=== PATIENT | male | born 1980 | race Caucasian/White ===

== ENCOUNTER 2021-04-10 15:40 | Emergency (ER) | payer BC, SELFPAY ==
[2021-04-10 17:24] VITALS: BP 158/86; PULSE 90; RESP 18; TEMP 37.2; O2SAT 100
--- NOTE | 2021-04-10 18:53 | ED.GENADULT ---
HPI - General Adult General Chief complaint: Eye Problems Stated complaint: pos pink eye,diarrhea,fatigue,runny nose, Time Seen by Provider: 04/10/21 18:44 Source: patient and RN notes reviewed Mode of arrival: ambulatory Limitations: no limitations History of Present Illness HPI narrative: Patient presents today with 5-day history of diarrhea, body aches, fatigue, headache. He reports left eye redness, watering, photophobia, pain and blurriness since yesterday. Denies fever or cough. He has been taking Tylenol with some relief. MD complaint: Cold symptoms, left eye redness Related Data Home Medications Medication Instructions Recorded Confirmed lisdexamfetamine [Vyvanse] 70 mg PO DAILY 04/10/21 04/10/21 Allergies Allergy/AdvReac Type Severity Reaction Status Date / Time No Known Allergies Allergy Verified 04/10/21 17:46 Review of Systems Review of Systems: CONSTITUTIONAL: Denies fever, chills, or sweats.+ Body aches, fatigue EYES: + Left eye redness, photophobia, blurriness, watering ENT: Denies rhinorrhea, congestion, sore throat, or otalgia. CARDIOVASCULAR: Denies chest pain, palpitations, or edema. RESPIRATORY: Denies cough or dyspnea. GASTROINTESTINAL: Denies abdominal pain, nausea, vomiting. + Diarrhea GENITOURINARY: Denies dysuria or hematuria. SKIN: Denies rash, itching, or wounds. MUSCULOSKELETAL: Denies back pain, joint pain, or myalgia. NEUROLOGIC: Denies numbness, tingling, or weakness.+ Headache PSYCH: Denies depression or anxiety. [facility] Past Medical History Medical History Anxiety Attention Deficit Hyperactivity Disorder (ADHD) History of kidney stones Family History Family History Grandparent Family history of anemia, Onset Age: 75 Acute myocardial infarction, Onset Age: 70 Family history of congestive heart failure, Onset Age: 75 Mother Family history of pancreatic cancer, Onset Age: 56 Father Family history of coronary artery disease, Onset Age: 58 Family history of congestive heart failure, Onset Age: 58 Social History Social History Smoking status: Never smoker Second hand tobacco smoke exposure: No Alcohol intake: current Substance use: never Substance use type: does not use Comments At time of signature, I have reviewed and agree with nursing past medical, surgical, social and family history unless otherwise noted. Please see nursing chart for further information. There is no relevant family history pertinent to the presenting complaint Exam Narrative: GENERAL: Well-appearing, well-nourished, and in no acute distress. HEAD: Normocephalic, atraumatic. EYES: EOMI. PERRL. Right eye normal. Left eye: Severely injected with chemosis and mild amount of tearing. No purulent discharge. ENT: Mucous membranes pink and moist. Nares clear. No rhinorrhea. TMs normal bilaterally. Throat normal. Uvula midline. NECK: Normal AROM. Supple. No lymphadenopathy. CHEST: No respiratory distress. Clear to auscultation. HEART: Regular rate and rhythm. No murmur appreciated. Normal peripheral pulses. EXTREMITIES: Normal range of motion. No edema. SKIN: Warm, dry, no rash. Capillary refill normal. Normal skin turgor. NEURO: No focal deficits. Alert and oriented x3. Gait steady. PSYCH: Normal affect. No signs of depression or anxiety. Course Course Level of Care: Express Care Visit Vital Signs Vital signs: Vital Signs Temperature 99 F 04/10/21 17:24 Pulse Rate 90 04/10/21 17:24 Respiratory Rate 18 04/10/21 17:24 Blood Pressure 158/86 H 04/10/21 17:24 Pulse Oximetry 100 04/10/21 17:24 Temperature 99 F 04/10/21 17:24 Pulse Rate 90 04/10/21 17:24 Respiratory Rate 18 04/10/21 17:24 Blood Pressure 158/86 H 04/10/21 17:24 Pu
== END 2021-04-10 19:00 | disposition home or self-care (01) ==
PROVIDERS: Emergency Provider Nurse Practitioner; PCP Nurse Practitioner Family
DX: U07.1 COVID-19 (principal); H10.32 Unspecified acute conjunctivitis, left eye; F90.9 Attention-deficit hyperactivity disorder, unspecified type
CPT/HCPCS: 87426; 99213; C9803; G0463

== ENCOUNTER 2021-06-28 17:58 | Emergency (ER) | payer BC, SELFPAY ==
[2021-06-28 18:05] VITALS: BP 138/91; PULSE 89; RESP 16; TEMP 36.6; O2SAT 98
--- NOTE | 2021-06-28 18:14 | ED.GENADULT ---
HPI - General Adult General Chief complaint: Extremity Injury, Lower Stated complaint: puncture wound left leg Time Seen by Provider: 06/28/21 18:07 History of Present Illness HPI narrative: Patient is a 41 year old healthy male here for evaluation of a wound to his right thigh sustained 1 hour [employer]. Patient was prying a rock out from under his trailer and he slipped and accidentaly stabbed himself with his pocket knife. 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 Knife is intact and denies any breaking of the metal in the wound. Tetanus not UTD. Patient is ambulatory. Denies further complaints. Related Data Allergies Allergy/AdvReac Type Severity Reaction Status Date / Time No Known Allergies Allergy Verified 04/14/21 13:44 Review of Systems Review of Systems: All systems reviewed & are unremarkable except as noted in HPI and below PMFSH Past Medical History Medical History Anxiety Attention Deficit Hyperactivity Disorder (ADHD) History of kidney stones Family History Family History Grandparent Family history of anemia, Onset Age: 75 Acute myocardial infarction, Onset Age: 70 Family history of congestive heart failure, Onset Age: 75 Mother Family history of pancreatic cancer, Onset Age: 56 Father Family history of coronary artery disease, Onset Age: 58 Family history of congestive heart failure, Onset Age: 58 Social History Social History Smoking status: Never smoker Second hand tobacco smoke exposure: No Alcohol intake: current Substance use: never Substance use type: does not use Exam Const: General: healthy appearing and no acute distress Orientation/consciousness: patient oriented x3 Eyes: Conjunctivae: conjunctivae normal Neck: Neck: normal visual inspection Resp: Effort & Inspection: normal respiratory effort Skin: General skin exam: normal color Other: 1 cm linear laceration present to left thigh just proximal to knee with subcutaneous tissue visible. Dried blood present, hemostasis achieved [employer] SCI[employer]ESS[employer]. Neuro: General: patient oriented x3 and moves all extremities Speech: normal speech Extrem: General: normal to inspection and no edema Psych: Appearance: grossly normal Mental Status: mental status grossly normal Thought content: Yes Normal thought content present Course Vital Signs Vital signs: Vital Signs Temperature 97.8 F 06/28/21 18:05 Pulse Rate 89 06/28/21 18:05 Respiratory Rate 16 06/28/21 18:05 Blood Pressure 138/91 H 06/28/21 18:05 Pulse Oximetry 98 06/28/21 18:05 Temperature 97.8 F 06/28/21 18:05 Pulse Rate 78 06/28/21 19:40 Respiratory Rate 16 06/28/21 19:40 Blood Pressure 138/91 H 06/28/21 18:05 Pulse Oximetry 98 06/28/21 19:40 Procedures Laceration Laceration 1: Date: 06/28/21 Time: 19:09 Site: lower extremity (left thigh) Size (cm): 2 Description: linear and clean Depth: simple, single layer Local Anesthetic: lidocaine 1% and with epi Amount of anesthesia used (mL): 4 Pre-repair: wound explored and irrigated ====== Skin Level ====== Skin layer closed with: nylon Size (cm): 3-0 Number of sutures: 2 Technique: simple, interrupted ====== Subcutaneous Layer ====== Technique: simple, interrupted ====== Muscle Layer ====== ====== Tendon Layer ====== Medical Decision Making MDM Narrative Medical decision making narrative: Healthy 41 year old here for laceration sustained from pocket knife 1 hour [employer]. Tolerated repair with sutures. Tetanus updated. Will have patient come back to ED/urgent care/PCP for suture removal in 10 days. No need for antibiotics as the wound was clean without debris. Advised patient to monitor for signs of infe
[2021-06-28] MEDS: TETANUS,DIPHTHERIA,AC PERTUSSIS ADULT (0.5 ML) BOOSTRIX IM (19:24)
[2021-06-28 19:40] VITALS: PULSE 78; RESP 16; O2SAT 98
== END 2021-06-28 19:40 | disposition home or self-care (01) ==
LOC: ANHED 19:13
PROVIDERS: Emergency Provider Emergency Medicine; PCP Nurse Practitioner Family
DX: S71.132A Puncture wound without foreign body, left thigh, initial encounter (principal); Z23 Encounter for immunization; W26.0XXA Contact with knife, initial encounter
CPT/HCPCS: 12001; 90471; 90715; 99282

== ENCOUNTER 2021-12-12 12:29 | Emergency (ER) | payer BC, SELFPAY ==
--- NOTE | ~2021-12-12 | US_ITS ---
EXAMINATION: US scrotum doppler DATE: 12/12/2021 13:45 INDICATION: Left testicular pain TECHNIQUE: Testicular sonogram utilizing grayscale and Doppler COMPARISON: None. FINDINGS: The right testis measures 4.2 x 2.1 x 2.8 cm. The left testis measures 4.1 x 2.0 x 2.9 cm. There is normal vascular flow to both testes. The right epididymis is normal with normal vascular padmini w. The left epididymis contains a 4 mm cyst or spermatocele. There is no varicocele or hydrocele. IMPRESSION: 1. No sonographic correlate for the patient's symptoms. Reviewed, dictated and finalized at location B.
[2021-12-12 12:36] VITALS: BP 139/92; PULSE 94; RESP 18; TEMP 36.6; O2SAT 98
[2021-12-12 12:50] LABS: Appearance Urine Clear (Clear); Bilirubin Urine Negative (Negative); Blood Urine Negative (Negative); Color Urine Yellow (Yellow); Glucose Urine UA Negative (Negative); Ketones Urine Negative (Negative); Leukocyte Esterase Ur Negative LEU/UL (Negative); Nitrate Urine Negative (Negative); Protein Urine Negative (Negative); Urobilinogen Urine 0.2 mg/dL (<2.0); pH Urine 5.5 (5.0-9.0)
[2021-12-12 13:01] LABS: Add Urine Microscopic? NO
--- NOTE | 2021-12-12 13:23 | ED.MALEGU ---
HPI - Male Genitourinary General Chief complaint: Urogenital-Male Stated complaint: testicular pain Time Seen by Provider: 12/12/21 12:52 History of Present Illness HPI Narrative: 41-year-old male presents the emergency room with a sudden onset of left testicular pain for 3 days. Patient states walking and sitting exacerbate the pain. Has not taken any medications to alleviate pain. Patient also states the pain radiates up into his suprapubic region. Also complains of decreased urine production. Denies dysuria. No concerns of STDs. Denies any injury or trauma to testicular region. Related Data Allergies Allergy/AdvReac Type Severity Reaction Status Date / Time No Known Allergies Allergy Verified 10/20/21 15:20 Review of Systems Review of Systems: CONSTITUTIONAL: Denies fever, chills, or sweats. EYES: Denies visual changes, redness, or discharge. ENT: Denies rhinorrhea, congestion, sore throat, or otalgia. CARDIOVASCULAR: Denies chest pain, palpitations, or edema. RESPIRATORY: Denies cough or dyspnea. GASTROINTESTINAL: Denies abdominal pain, nausea, vomiting, or diarrhea. GENITOURINARY: Reports left testicular pain SKIN: Denies rash or itching. MUSCULOSKELETAL: Denies back pain, joint pain, or myalgia. NEUROLOGIC: Denies headache, numbness, dizziness, or weakness. PSYCHIATRIC: Denies anxiety or depression. [facility] Past Medical History Medical History Anxiety Attention Deficit Hyperactivity Disorder (ADHD) History of kidney stones Low testosterone in male Family History Family History Grandparent Family history of anemia, Onset Age: 75 Acute myocardial infarction, Onset Age: 70 Family history of congestive heart failure, Onset Age: 75 Mother Family history of pancreatic cancer, Onset Age: 56 Father Family history of coronary artery disease, Onset Age: 58 Family history of congestive heart failure, Onset Age: 58 Social History Social History Smoking status: Never smoker Second hand tobacco smoke exposure: No Alcohol intake: current Substance use: never Substance use type: does not use Gender identity (if verbalized by the patient): Male Agree to blood products: Yes Exam Narrative: GENERAL: Well-appearing, well-nourished, no physical limitations, and in no acute distress. HEAD: Normocephalic, atraumatic. EYES: Conjunctivae normal, PERRLA and EOMI. CHEST: Clear to auscultation. No respiratory distress. No wheezes rales or rhonchi. No tenderness. HEART: Regular rate and rhythm. No murmur heard. Normal peripheral pulses. ABDOMEN: Soft, nontender, nondistended, normal active bowel sounds. : Normal external male exam. Positive Prehn sign on the left. Positive cremasteric reflex bilaterally BACK: No CVA tenderness; No cervical/thoracic/lumbar tenderness, step-offs, bony abnormality; FROM EXTREMITIES: Normal range of motion. No edema. No clubbing or cyanosis SKIN: Warm, dry, no rash. No noted wounds NEURO: No focal deficits. Alert and oriented x3. MAEW. CN's II-XI intact bilaterally, normal gait PSYCH: Cooperative. Normal mood and affect. Course Vital Signs Vital signs: Vital Signs Temperature 36.6 C 12/12/21 12:36 Pulse Rate 94 12/12/21 12:36 Respiratory Rate 18 12/12/21 12:36 Blood Pressure 139/92 H 12/12/21 12:36 Pulse Oximetry 98 12/12/21 12:36 Oxygen Delivery Room Air 12/12/21 12:36 Temperature 36.6 C 12/12/21 12:36 Pulse Rate 94 12/12/21 12:36 Respiratory Rate 18 12/12/21 12:36 Blood Pressure 139/92 H 12/12/21 12:36 Pulse Oximetry 98 12/12/21 12:36 Oxygen Delivery Room Air 12/12/21 12:36 MDM - Male Genitourinary Lab Data Labs: Lab Results 12/12/21 Range/Units 12:40 Urine Color Yellow (Yellow) Urine Appearance Clear
[2021-12-12 14:46] VITALS: BP 132/93; PULSE 87; RESP 16; O2SAT 98
== END 2021-12-12 14:46 | disposition home or self-care (01) ==
PROVIDERS: Emergency Medicine; Emergency Provider Nurse Practitioner Family; PCP Nurse Practitioner Family
DX: N50.812 Left testicular pain (principal)
CPT/HCPCS: 76870; 81003; 93976; 99284

== ENCOUNTER 2022-01-30 07:21 | Emergency (ER) | payer BC, SELFPAY ==
[2022-01-30] VITALS (18 sets, daily range): BP systolic 153–173; BP diastolic 91–111; PULSE 90–105; RESP 9–25; TEMP 36.4; O2SAT 94–100
--- NOTE | ~2022-01-30 | CT_ITS ---
EXAMINATION: CT abdomen pelvis w con DATE: 01/30/2022 09:49 INDICATION: Abdominal pain. TECHNIQUE: Computed tomography (CT) of the abdomen and pelvis was performed with 100 CC Omnipaque 350 intravenous contrast. Automated exposure control and iterative reconstruction technique were employe d. Exam dose: 783.89 mGy-cm total exam DLP. COMPARISON: 12/12/2021 scrotal ultrasound FINDINGS: Mild discoid atelectasis in the dependent lower lobes. Normal heart size. No pericardial or pleural effusion. The liver, gallbladder, bile ducts, pancreas, pancreatic duct, spleen, and adrenal glands are unremar kable. 5 mm left renal cyst. There are 2 nonobstructing lower pole right renal calculi, measuring approximat titi 2.5 x 4 mm and 5.5 x 8 mm, the latter stone with mean 541 Hounsfield unit density. No ureteral calculus or hydroureteronephrosis. Normal caliber of the abdominal aorta. No intraperitoneal or retroperitoneal or pelvic mass lesion or adenopathy or ascites. The urinary bladder and prostate gland are unremarkable. Normal appendix. No bowel obstruction, bowel wall thickening, pneumatosis or intraperitoneal free air . Small fat-containing inguinal hernias, right larger than left. Small fat-containing umbilical hernia. No suspicious osteolytic or osteoblastic lesions. IMPRESSION: 5 mm left renal cysts Nonobstructive lower pole right nephrolithiasis Normal appendix Small fat-containing inguinal hernias, small umbilical hernia Reviewed, dictated and finalized at Location [facility]. Reviewed, dictated and finalized at location A.
--- NOTE | ~2022-01-30 | XR_ITS ---
EXAMINATION: XR chest 2V DATE: 01/30/2022 08:19 INDICATION: Chest pain. Shortness of breath. TECHNIQUE: Frontal and lateral views of the chest were obtained. COMPARISON: None. FINDINGS: The chest demonstrates clear lungs without pneumonia, pleural effusion, or pneumothorax. Th e heart size is normal. IMPRESSION: 1. No acute cardiopulmonary disease. Reviewed, dictated and finalized at location A.
--- NOTE | 2022-01-30 07:25 | ECG_ITS ---
Measurements Intervals [place] Rate: 90 P: 138 UT: 142 QRS: 106 QRSD: 103 T: 0 QT: 327 QTc: 401 Interpretive Statements ECTOPIC ATRIAL RHYTHM LEFT ATRIAL ENLARGEMENT [-0.15mV P-WAVE IN V1/V2] LOW QRS VOLTAGE IN EXTREMITY LEADS [QRS DEFLECTION < 0.5 mV IN LIMB LEADS] INCOMPLETE RIGHT BUNDLE BRANCH BLOCK [90+ ms QRS DURATION, TERMINAL R IN V1/V2, 40+ ms S IN I/aVL/V4/V5/V6] NO PREVIOUS ECG AVAILABLE FOR COMPARISON Electronically Signed On 01-30-2022 12:47:03 CDT by Eddie Jung M.D.
--- NOTE | 2022-01-30 07:36 | ECG_ITS ---
Measurements Intervals [place] Rate: 104 P: 52 MD: 148 QRS: 47 QRSD: 100 T: 13 QT: 323 QTc: 425 Interpretive Statements SINUS TACHYCARDIA LEFT ATRIAL ENLARGEMENT [-0.15mV P-WAVE IN V1/V2] INCOMPLETE RIGHT BUNDLE BRANCH BLOCK [90+ ms QRS DURATION, TERMINAL R IN V1/V2, 40+ ms S IN I/aVL/V4/V5/V6] NONSPECIFIC T-WAVE ABNORMALITY COMPARED TO ECG 01/30/2022 07:29:58 NO CHANGE Electronically Signed On 01-30-2022 12:47:37 CDT by Eddie Jung M.D.
[2022-01-30] MEDS: ASPIRIN 81 MG CHEWABLE TABLET 324 MG PO (07:44)
--- NOTE | 2022-01-30 07:44 | ED.GENADULT ---
HPI - General Adult General Chief complaint: Chest Pain Stated complaint: cp Time Seen by Provider: 01/30/22 07:30 History of Present Illness HPI narrative: this is a 41-year-old male presenting ED with chief complaint of chest pain. Patient says the pain started at 1:00 a.m.. It is a tight dullness in the center of his chest that is nonradiating, 7/10 in intensity, constant and getting worse. He has never experienced pain like this before there are no exacerbating or alleviating factors. It is not associated with vomiting, diaphoresis, exertion or radiation. Patient also has some abdominal discomfort in the epigastric area that radiates to his back. Patient is a daily drinker. Patient denies fever, chills, headache, body aches. He is vaccinated against COVID and flu. He denies sick contacts at home. Patient came to emergency room because after he woke up with chest pain he has took his blood pressure is elevated 170/100. Related Data Allergies Allergy/AdvReac Type Severity Reaction Status Date / Time No Known Allergies Allergy Verified 10/20/21 15:20 Review of Systems Review of Systems: CONSTITUTIONAL: Denies night sweats. EYES: No eye pain ENT: Denies rhinorrhea CARDIOVASCULAR: Denies palpitations RESPIRATORY: Denies hemoptysis GASTROINTESTINAL: Denies hematemesis GENITOURINARY: Denies hematuria. SKIN: Denies rash MUSCULOSKELETAL: Denies myalgia. NEUROLOGIC: Denies weakness. PSYCHIATRIC: Denies delusions PMFSH Past Medical History Medical History Anxiety Attention Deficit Hyperactivity Disorder (ADHD) History of kidney stones Low testosterone in male Family History Family History Grandparent Family history of anemia, Onset Age: 75 Acute myocardial infarction, Onset Age: 70 Family history of congestive heart failure, Onset Age: 75 Mother Family history of pancreatic cancer, Onset Age: 56 Father Family history of coronary artery disease, Onset Age: 58 Family history of congestive heart failure, Onset Age: 58 Social History Social History Smoking status: Never smoker Second hand tobacco smoke exposure: No Alcohol intake: current Substance use: never Substance use type: does not use Gender identity (if verbalized by the patient): Male Agree to blood products: Yes Exam Narrative: APPEARANCE: No apparent distress. Head atraumatic. EYES: PERRLA/EOMI, NOSE: Normal no drainage NECK: Supple, Trachea midline RESPIRATORY: CTAB, No increased work of breathing. CARDIOVASCULAR: S1S2 appreciated , no peripheral edema ABDOMINAL: mild tenderness palpation in the epigastric area, no guarding or rebound abdomen is soft MUSCULOSKELETAl: No obvious deformities NEURO: Alert. Moving 4/4 extremities SKIN:: Warm, dry. Normal color PSYCHIATRIC: Normal affect Course Vital Signs Vital signs: Vital Signs Temperature 97.6 F 01/30/22 07:26 Pulse Rate 102 H 01/30/22 07:26 Respiratory Rate 15 01/30/22 07:26 Blood Pressure 173/111 H 01/30/22 07:26 Pulse Oximetry 99 01/30/22 07:26 Temperature 97.6 F 01/30/22 07:26 Pulse Rate 100 01/30/22 10:48 Respiratory Rate 18 01/30/22 10:48 Blood Pressure 153/95 H 01/30/22 10:48 Pulse Oximetry 98 01/30/22 10:48 Oxygen Delivery Room Air 01/30/22 07:49 Medical Decision Making MDM Narrative Medical decision making narrative: this is a 41-year-old male presenting ED with chest and abdominal pain. Patient is concerned that he is having a heart attack. ACS workup has been ordered. Patient is young and has few risk factors for heart disease. 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 Patient will be given a GI cocktail. Abdominal and chest pain lab work has been ordered.
[2022-01-30 07:49] LABS: Basophils Percent Auto 0.5 % (0.2-1.2); Eosinophils Absolute Auto 0.2 K/mm3 (0-0.3); Eosinophils Percent Auto 2.6 % (0-4.4); Hematocrit 49.5 % (42.0-52.0); Hemoglobin 16.9 g/dL (14.0-18.0); Immature Granulocyte Absolute 0.02 K/mm3 (0.00-0.031); Immature Granulocyte Percent A 0.3 % (0-0.5); Lymphocytes Absolute Auto 1.95 K/mm3 (0.9-3.2); Lymphocytes Percent Auto 31.1 % (18.3-44.2); Mean Corpuscular HGB Conc 34.1 g/dl (32-36); Mean Corpuscular Hemoglobin 31.5 pg (26-34); Mean Corpuscular Volume 92.4 fl (80-100); Mean Platelet Volume 10.2 fl (7.4-10.4); Monocytes Absolute Auto 0.8 K/mm3 (0.1-0.6); Monocytes Percent Auto 13.1 % (2.6-8.5); Neutrophils Absolute Auto 3.3 K/mm3 (1.3-6.7); Neutrophils Percent Auto 52.4 % (45.5-73.1); Platelet Count Result 234 k/mm3 (150-375); Red Blood Count 5.36 M/mm3 (4.6-6.20); Red Cell Distribution Width 13.3 % (11.5-14.5); White Blood Count 6.3 K/mm3 (4.5-10.0)
[2022-01-30 07:58] LABS: Prothrombin Time 12.9 Seconds (11.1-14.7)
[2022-01-30 07:59] LABS: Partial Thromboplastin Time 29.5 SECONDS (22.3-36.8)
[2022-01-30] MEDS: MAG HYDROX/AL HYDROX/SIMETH 30 ML UDC PO (08:05)
[2022-01-30] MEDS: FAMOTIDINE 20 MG/2 ML VIAL IV PUSH (08:06)
[2022-01-30 08:16] LABS: Troponin I < 0.012 ng/mL (0.000-0.034)
[2022-01-30 08:26] LABS: Alanine Aminotransferase 39 U/L (6-50); Albumin Level 4.9 g/dL (3.5-5.1); Alkaline Phosphatase 54 U/L (38-126); Anion Gap 14 mmol/L (8-16); Aspartate Amino Transferase 57 U/L (17-59); Bilirubin,Total 0.9 mg/dL (0.2-1.3); Blood Urea Nitrogen 13 mg/dL (9-20); Calcium 9.2 mg/dL (8.4-10.2); Carbon Dioxide 26 mmol/L (22-30); Chloride 100 mmol/L (98-107); Estimated Glomerular Filt Rate > 60; Glucose 108 mg/dL (65-110); Lipase 57 U/L (23-300); Potassium 3.6 mmol/L (3.4-5.0); Sodium 140 mmol/L (137-145)
--- NOTE | 2022-01-30 09:06 | PC.NURSE ---
Patient reports he is still in pain, EDP Zych notified.
[2022-01-30] MEDS: HYDROmorphone HCL INJ (*CRX) 1 MG/ML SYR 0.5 MG IV PUSH (09:30)
[2022-01-30] MEDS: SODIUM CHLORIDE 0.9% IV 2,000 ML 999 ML IV CONT (09:30)
[2022-01-30 11:07] LABS: Troponin I < 0.012 ng/mL (0.000-0.034)
== END 2022-01-30 11:57 | disposition home or self-care (01) ==
PROVIDERS: Emergency Provider Emergency Medicine; PCP Nurse Practitioner Family
DX: K29.70 Gastritis, unspecified, without bleeding (principal); F41.9 Anxiety disorder, unspecified; F90.9 Attention-deficit hyperactivity disorder, unspecified type; Z87.442 Personal history of urinary calculi; N28.1 Cyst of kidney, acquired; N20.0 Calculus of kidney; K40.90 Unilateral inguinal hernia, without obstruction or gangrene, not specified as recurrent; K42.9 Umbilical hernia without obstruction or gangrene; I45.10 Unspecified right bundle-branch block; R00.0 Tachycardia, unspecified; R94.31 Abnormal electrocardiogram [ECG] [EKG]
CPT/HCPCS: 36415; 71046; 74177; 80053; 83690; 84484; 85025; 85610; 85730; 93005; 96361; 96374; 99284; A9270; J1170; J7030; Q9967

== ENCOUNTER 2022-06-21 09:31 | Emergency (ER) | payer BC, SELFPAY ==
[2022-06-21] VITALS (12 sets, daily range): BP systolic 108–142; BP diastolic 84–97; PULSE 70–85; RESP 0–21; TEMP 36.8; O2SAT 95–99
--- NOTE | ~2022-06-21 | XR_ITS ---
XR chest 1V portable DATE: 06/21/2022 10:03 INDICATION: Left chest pain, chest tightness since last evening TECHNIQUE: Portable AP chest on 06/21/2022 at 1001 hours COMPARISON: 01/30/2022 PA and lateral chest FINDINGS: Normal heart size. No hilar or mediastinal enlargement. No pulmonary infiltrate or consolid ation, pleural effusion or pulmonary vascular congestion or pneumothorax is detected. IMPRESSION: No active cardiopulmonary disease Reviewed, dictated and finalized at location B.
--- NOTE | 2022-06-21 09:35 | ECG_ITS ---
Measurements Intervals [place] Rate: 84 P: 30 UT: 135 QRS: 19 QRSD: 98 T: 17 QT: 339 QTc: 401 Interpretive Statements SINUS RHYTHM ST ELEVATION IN DIFFUSE LEADS- PROBABLY EARLY REPOLARIZATION ABNORMALITY BORDERLINE ECG BASELINE ARTIFACT- I, II, III, AVR COMPARED TO ECG 01/30/2022 07:37:21 SINUS RHYTHM NOW PRESENT Electronically Signed On 06-21-2022 12:02:29 CDT by Marlon Escoto D.O.
[2022-06-21 09:59] LABS: Basophils Percent Auto 0.4 % (0.2-1.2); Eosinophils Absolute Auto 0.2 K/mm3 (0-0.3); Eosinophils Percent Auto 3.5 % (0-4.4); Hematocrit 48.2 % (42.0-52.0); Hemoglobin 16.5 g/dL (14.0-18.0); Immature Granulocyte Absolute 0.02 K/mm3 (0.00-0.031); Immature Granulocyte Percent A 0.4 % (0-0.5); Lymphocytes Absolute Auto 1.68 K/mm3 (0.9-3.2); Lymphocytes Percent Auto 32.2 % (18.3-44.2); Mean Corpuscular HGB Conc 34.2 g/dl (32-36); Mean Corpuscular Volume 93.4 fl (80-100); Mean Platelet Volume 9.8 fl (7.4-10.4); Monocytes Absolute Auto 0.7 K/mm3 (0.1-0.6); Monocytes Percent Auto 12.9 % (2.6-8.5); Neutrophils Absolute Auto 2.6 K/mm3 (1.3-6.7); Neutrophils Percent Auto 50.6 % (45.5-73.1); Platelet Count Result 248 k/mm3 (150-375); Red Blood Count 5.16 M/mm3 (4.6-6.20); Red Cell Distribution Width 12.8 % (11.5-14.5); White Blood Count 5.2 K/mm3 (4.5-10.0)
--- NOTE | 2022-06-21 10:00 | ED.CHESTPAIN ---
HPI - Chest Pain General Chief Complaint: Chest Pain Stated Complaint: Chest pain Time Seen by Provider: 06/21/22 09:48 Source: patient and RN notes reviewed Mode of arrival: ambulatory Limitations: no limitations History of Present Illness HPI narrative: This is a 42 year old male that presents to the ER for chest pain ongoing since last night. Reports the pain is substernal and dull in nature. It is constant, but has improved since onset. He has not taken anything for pain. Reports the pain is worse with breathing. Denies fever, cough, shortness of breath, lower extremity edema or vomiting. Related Data Home Medications Medication Instructions Recorded Confirmed bupropion HCl 300 mg 24 hr tablet, 300 mg PO QAM 05/02/22 05/02/22 extended release (Wellbutrin XL) omeprazole magnesium 20 mg 20 mg PO DAILY 05/02/22 05/02/22 tablet,delayed release (Prilosec OTC) Allergies Allergy/AdvReac Type Severity Reaction Status Date / Time No Known Allergies Allergy Verified 06/21/22 09:44 Review of Systems Review of Systems: CONSTITUTIONAL: Denies fever CARDIOVASCULAR: Reports chest pain. Denies edema. RESPIRATORY: Denies cough or dyspnea. All systems reviewed & are unremarkable except as noted in HPI and below PMFSH Past Medical History Medical History Anxiety Attention Deficit Hyperactivity Disorder (ADHD) GERD (gastroesophageal reflux disease) History of kidney stones Hyperlipemia Low testosterone in male Mixed hyperlipidemia Family History Family History Grandparent Family history of anemia, Onset Age: 75 Acute myocardial infarction, Onset Age: 70 Family history of congestive heart failure, Onset Age: 75 Heart disease Mother Family history of pancreatic cancer, Onset Age: 56 Father Family history of coronary artery disease, Onset Age: 58 Family history of congestive heart failure, Onset Age: 58 Heart disease Social History Social History Smoking status: Never smoker Second hand tobacco smoke exposure: No Alcohol intake: current Substance use: never Substance use type: does not use Lack of Transportation: No Current Housing: I Have Housing Concerned About Future Housing: No Difficulty Paying Gas/Electric Bills: No Difficulty Paying for Meds: No Currently Unemployed: No Education: Trade/Vocational Certificate Difficulty w/ Childcare or Family Care: No Living arrangements: with family Occupation/Education: occupation 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 HEAD: Normocephalic, atraumatic. EYES: EOMI. CHEST: Clear to auscultation. No respiratory distress. No wheezes rales or rhonchi HEART: Regular rate and rhythm. No murmur heard. Normal peripheral pulses. EXTREMITIES: Normal range of motion. No edema. SKIN: Warm, dry, no rash. NEURO: No focal deficits. Alert and oriented x3. PSYCH: Normal mood and affect Course Course Emergency Course: Patient and family updated on workup and agree with plan of care Vital Signs Vital signs: Vital Signs Temperature 98.3 F 06/21/22 09:38 Pulse Rate 85 06/21/22 09:38 Respiratory Rate 16 06/21/22 09:38 Blood Pressure 134/85 06/21/22 09:38 Pulse Oximetry 98 06/21/22 09:38 Oxygen Delivery Room Air 06/21/22 09:38 Temperature 98.3 F 06/21/22 09:38 Pulse Rate 75 06/21/22 12:46 Respiratory Rate 18 06/21/22 12:46 Blood Pressure 135/91 H 06/21/22 12:45 Pulse Oximetry 99 06/21/22 12:46 Oxygen Delivery Room Air 06/21/22 09:40 MDM - Chest Pain MDM Narrative Medical decis
[2022-06-21] MEDS: PANTOPRAZOLE SODIUM IV 40 MG VIAL IV PUSH (10:10)
[2022-06-21] MEDS: SODIUM CHLORIDE 0.9% IV 500 ML 999 ML IV CONT (10:10)
[2022-06-21 10:11] LABS: Prothrombin Time 12.6 Seconds (11.1-14.7)
[2022-06-21 10:12] LABS: Partial Thromboplastin Time 32.7 SECONDS (22.3-36.8)
[2022-06-21 10:14] LABS: Alanine Aminotransferase 58 U/L (6-50); Albumin Level 4.6 g/dL (3.5-5.1); Alkaline Phosphatase 52 U/L (38-126); Anion Gap 7 mmol/L (8-16); Aspartate Amino Transferase 54 U/L (17-59); Bilirubin,Total 0.7 mg/dL (0.2-1.3); Blood Urea Nitrogen 18 mg/dL (9-20); Calcium 8.8 mg/dL (8.4-10.2); Carbon Dioxide 25 mmol/L (22-30); Chloride 104 mmol/L (98-107); Estimated CRCL calculation 115 ml/min; Estimated Glomerular Filt Rate > 60; Glucose 101 mg/dL (65-110); Lipase 63 U/L (23-300); Potassium 4.3 mmol/L (3.4-5.0); Sodium 136 mmol/L (137-145)
[2022-06-21 10:24] LABS: Troponin I < 0.012 ng/mL (0.000-0.034)
[2022-06-21 12:59] LABS: Troponin I < 0.012 ng/mL (0.000-0.034)
== END 2022-06-21 14:01 | disposition home or self-care (01) ==
PROVIDERS: General Practice; Emergency Provider Physician Assistant; PCP Nurse Practitioner Family
DX: R07.9 Chest pain, unspecified (principal); E78.2 Mixed hyperlipidemia; K21.9 Gastro-esophageal reflux disease without esophagitis; F90.9 Attention-deficit hyperactivity disorder, unspecified type; F41.9 Anxiety disorder, unspecified
CPT/HCPCS: 36415; 71045; 80053; 83690; 84484; 85025; 85380; 85610; 85730; 93005; 96365; 96375; 99284; C9113; J0131; J7040

== ENCOUNTER 2022-08-10 10:01 | Outpatient (CLI) | payer BC, SELFPAY ==
--- NOTE | 2022-08-10 10:04 | EST_ITS ---
Patient Info Name: Dilshad Kamara Age: 42 years : 1980 Gender: Male Ht: 72 in Wt: 220 lbs BSA: 2.27 m2 Exam Date: 08/10/2022 10:14 AM Exam Location: [facility] Stress Patient Status: Outpatient Admit Date: 08/10/2022 Staff Ordering Physician: Deisi Jeffries NP Attending Provider: Deisi Jeffries NP Exercise Technologist: Sarah Silveira RDCS Exercise Physician: Marlon Escoto DO Exam Type: CA stress test treadmill Study Info Indications R07.9 - Chest pain, unspecified A treadmill exercise stress test was performed. Summary 1. 1. Negative Darren exercise stress test for ischemic ST changes by ECG criteria. 2. 2. Good functional capacity, achieving 12 METs of workload. 3. 3. Appropriate HR response to exercise. 4. 4. Appropriate HR recovery at 1 minute post exercise. 5. 5. No imaging with stress testing. 6. 6. Patient informed of the above results. Protocol: Darren Stress ECG Details Stage: REST Duration (min): 0 min : 59 sec Speed (mph): 0.0 Grade (%): 0 HR (bpm): 92 SBP (mmHg): 128 DBP (mmHg): 92 METS: --- Stage: REST Duration (min): 6 min : 5 sec Speed (mph): 0.0 Grade (%): 0 HR (bpm): 95 SBP (mmHg): 128 DBP (mmHg): 92 METS: --- Stage: STAGE 1 Duration (min): 1 min : 0 sec Speed (mph): 1.7 Grade (%): 10 HR (bpm): 118 SBP (mmHg): 128 DBP (mmHg): 92 METS: --- Stage: STAGE 1 Duration (min): 2 min : 0 sec Speed (mph): 1.7 Grade (%): 10 HR (bpm): 120 SBP (mmHg): 128 DBP (mmHg): 92 METS: --- Stage: STAGE 1 Duration (min): 3 min : 0 sec Speed (mph): 1.7 Grade (%): 10 HR (bpm): 124 SBP (mmHg): 152 DBP (mmHg): 64 METS: --- Stage: STAGE 2 Duration (min): 1 min : 0 sec Speed (mph): 2.5 Grade (%): 12 HR (bpm): 125 SBP (mmHg): 152 DBP (mmHg): 64 METS: --- Stage: STAGE 2 Duration (min): 2 min : 0 sec Speed (mph): 2.5 Grade (%): 12 HR (bpm): 128 SBP (mmHg): 147 DBP (mmHg): 71 METS: --- Stage: STAGE 2 Duration (min): 3 min : 0 sec Speed (mph): 2.5 Grade (%): 12 HR (bpm): 129 SBP (mmHg): 147 DBP (mmHg): 71 METS: --- Stage: STAGE 3 Duration (min): 1 min : 0 sec Speed (mph): 3.4 Grade (%): 14 HR (bpm): 133 SBP (mmHg): 143 DBP (mmHg): 74 METS: --- Stage: STAGE 3 Duration (min): 2 min : 0 sec Speed (mph): 3.4 Grade (%): 14 HR (bpm): 134 SBP (mmHg): 143 DBP (mmHg): 74 METS: --- Stage: STAGE 3 Duration (min): 3 min : 0 sec Speed (mph): 3.4 Grade (%): 14 HR (bpm): 138 SBP (mmHg): 146 DBP (mmHg): 75 METS: --- Stage: STAGE 4 Duration (min): 1 min : 0 sec Speed (mph): 4.2 Grade (%): 16 HR (bpm): 147 SBP (mmHg): 146 DBP (mmHg): 75 METS: --- Stage: STAGE 4 Duration (min): 2 min : 0 sec Speed (mph): 4.2 Grade (%): 16 HR (bpm): 156 SBP (mmHg): 143 DBP (mmHg): 73 METS: --- Stage: STAGE 4 [facility]
== END 2022-08-10 10:02 | disposition home or self-care (01) ==
LOC: ANHCARD 10:02
PROVIDERS: PCP Nurse Practitioner Family; Visit Provider Nurse Practitioner Family
DX: R07.9 Chest pain, unspecified (principal)
CPT/HCPCS: 93017

== ENCOUNTER → 2022-11-20 15:46 | Outpatient (CLI) | payer BC, SELFPAY ==
--- NOTE | ~2022-11-20 | XR_ITS ---
EXAMINATION: XR lumbar spine 2-3V DATE: 11/20/2022 15:56 INDICATION: Low back pain TECHNIQUE: Anteroposterior and lateral views of the lumbar spine, and cone-down lateral view of the l umbosacral junction were obtained. COMPARISON: CT, 01/30/2022 FINDINGS: Bone alignment is normal. There is no fracture. There is mild loss of intervertebral disc s pace height at L4-5. The vertebral body heights are maintained. Small degenerative osteophytes projec t from the anterior endplates of multiple vertebral bodies. There is mild facet joint osteoarthritis of the lower lumbar spine. IMPRESSION: 1. Mild lumbar spondylosis without acute findings. Reviewed, dictated and finalized at location A.
== END ==
PROVIDERS: PCP Nurse Practitioner Family; Visit Provider Nurse Practitioner Family
DX: M79.662 Pain in left lower leg (principal); M47.896 Other spondylosis, lumbar region
CPT/HCPCS: 72100

== ENCOUNTER 2022-12-29 15:45 | Outpatient (RCR) | payer BC, SELFPAY ==
--- NOTE | 2022-12-08 10:46 | OPREHPOC ---
Outpatient Therapy Plan of Care This is a Multidisciplinary Plan of Care that may contain components documented by all disciplines (PT, OT, and ST.) PT Problem 1 PT Problem #1 Knowledge Deficit PT Goal 1 Goal Pt to be IND with issued HEP Target Visit 8 PT Problem 2 PT Problem #2 Pain PT Goal 1 Goal Pt to report back pain no greater than 3/10 in the last week Target Visit 8 PT Goal 2 Goal Pt to report 75% improvement in overall symptoms Target Visit 8 PT Problem 3 PT Problem #3 Impaired Range of Motion PT Goal 1 Goal Pt to demonstrate lumbar ROM that is WNL and pain free Target Visit 8 PT Goal 2 Goal Pt to demonstrate hip ROM that is WNL and pain free Target Visit 8 PT Problem 4 PT Problem #4 Impaired Gait PT Goal 1 Goal Pt to ambulate without deviations Target Visit 8 PT Problem 5 PT Problem #5 Impaired Functional Mobil PT Goal 1 Goal Pt to report a full return to work without limitations. Target Visit 8
--- NOTE | 2022-12-08 10:46 | PTOPEVAL1 ---
Assessment and note entered by Hernán Mayfield, PT, DPT Evaluation Information Assessment Status Evaluation Diagnosis back pain with L sided sciatica Onset 1-2 weeks ago Subjective Information Pt states on a Sunday night be moved something heavy and states he deirdre felt something weird . He states he just laid around the rest of the weekend and got up to work on sunday and could barely walk. He states the pain is progressively getting worse. He reports a shooting pain that goes down his legs but declines weakness or numbness. 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 Reported Pain Level Pain Score 8: Self Report Assessment PT Clinical Summary Dilshad presents today for his initial evaluation with a diagnosis of lumbago with L sided sciatica. Today he demonstrates decreased active lumbar ROM and hip ROM in all directions with is limited by pain. He demonstrates slow and guarded movements during functional transitions and ambulated with significant deviations and a decreased gait speed. Skilled therapy services are indicated to manage pain, to imporve mobility, to normalize gait pattern, and to return to PLOF. Plan of Care Interventions Electrical Stimulation,Gait Training,Hot Pack/Cold Pack,Manual Therapy,Mechanical Traction,Neuro Re- education,Patient/Caregiver Educati,Therapeutic Activities,Therapeutic Exercise PT Services Indicated Yes Treatment Frequency and 2x/wk for 4 wks Duration These treatments will address the objective and functional deficits as defined above. The patient will be advanced safely and appropriately in order for the patient to progress towards his/her prior level of function. Additional exercises will be introduced and as well as a comprehensive home exercise program upon discharge, if needed, ?to ensure carryover of functional gains achieved in the clinic. This treatment plan has been reviewed and agreement upon by the patient.
--- NOTE | 2022-12-15 10:19 | PCPTNOTE ---
Patient called & cancelled scheduled appointment this date due to not feeling well.
--- NOTE | 2022-12-20 15:27 | PCPTNOTE ---
Patient called to cancel due to work conflict.
--- NOTE | 2022-12-22 15:10 | PCPTNOTE ---
Patient called & cancelled scheduled appointment this date due to being in too much pain.
--- NOTE | 2022-12-26 14:55 | PCPTNOTE ---
Patient called to cancel appointment this date due to work.
--- NOTE | 2023-01-03 15:10 | PCPTNOTE ---
Patient canceled this date due to work.
--- NOTE | 2023-01-05 15:50 | PCPTNOTE ---
Patient called & cancelled scheduled appointment this date due to being stuck at work.
--- NOTE | 2023-01-24 13:40 | PTOPDC ---
Assessment and note entered by Hernán Mayfield, PT, DPT Evaluation Information Assessment Status Discharge - Pt Not Presen Diagnosis back pain with L sided sciatica Onset 1-2 weeks ago Subjective Information Pt to be discharged d/t poor therapy compliance. Called pt to inform him of discharge and states he plans to follow up with his provider. He states he is doing well but wants an MRI just to see whats going on . Assessment PT Clinical Summary Pt was evaluated on 12/08/22 and completed 3 of 9 scheduled visits. Per attendance policy pt will be discharged at this time.
== END 2023-01-24 14:53 | disposition home or self-care (01) ==
LOC: ANHGOSHPT 15:45
PROVIDERS: PCP Nurse Practitioner Family; Visit Provider Nurse Practitioner Family
DX: M54.42 Lumbago with sciatica, left side (principal)
CPT/HCPCS: 97014; 97110; 97161; 97530; G0283

== ENCOUNTER 2024-01-15 15:09 | Outpatient (CLI) | payer BC, SELFPAY ==
--- NOTE | ~2024-01-15 | MR_ITS ---
EXAMINATION: MR lumbar spine wo con DATE: 01/15/2024 15:43 INDICATION: Lumbago. Left-sided sciatica. TECHNIQUE: Magnetic resonance imaging (MRI) of the lumbar spine was performed without intravenous con trast. Sequences included sagittal T2-weighted FSE, sagittal T2-weighted FS FSE, sagittal T1-weighted FSE, and axial T2-weighted FSE. COMPARISON: Lumbar spine radiographs 11/20/2022 FINDINGS: There is 5 degrees dextrocurvature of lumbar spine. Vertebral body heights are normal. Ther e is mildly decreased disc height at L4-L5. The distal spinal cord signal intensity is normal. The co nus medullaris is at T12-L1. The following disc levels are specifically discussed: L1-L2: The disc does not extend beyond the endplate margin. There is mild bilateral facet joint osteo arthritis. There is no neural foraminal stenosis. There is no central canal stenosis. L2-L3: The disc does not extend beyond the endplate margin. There is mild bilateral facet joint osteo arthritis. There is no neural foraminal stenosis. There is no central canal stenosis. L3-L4: There is a left subarticular zone protrusion. There is mild bilateral facet joint osteoarthrit is. There is no neural foraminal stenosis. There is mild central canal stenosis. L4-L5: The disc is bulging and has an annular fissure. There is mild bilateral facet joint osteoarthr itis. There is mild bilateral neural foraminal stenosis. There is mild central canal stenosis. L5-S1: The disc does not extend beyond the endplate margin. There is moderate bilateral facet joint o steoarthritis. There is mild left neural foraminal stenosis. There is no central canal stenosis. IMPRESSION: 1. Mild lumbar spondylosis. Reviewed, dictated and finalized at location A. IMPRESSION: 1. Mild lumbar spondylosis.
== END 2024-01-15 15:10 | disposition home or self-care (01) ==
LOC: GOSHIMG 15:10
PROVIDERS: PCP Anesthesiology Pain Medicine; Visit Provider Nurse Practitioner Family
DX: M47.816 Spondylosis without myelopathy or radiculopathy, lumbar region (principal); M54.42 Lumbago with sciatica, left side
CPT/HCPCS: 72148

== ENCOUNTER 2024-06-02 00:06 | Day surgery (SDC) | payer BC, SELFPAY ==
--- NOTE | 2024-05-23 10:00 | PC.NURSE ---
Addendum entered by Angel Luis Lujan RN 05/23/24 10:19: Report to the Outpatient waiting room entrance under the green pavilion located off [address] , at 1145 on 06-02-2024 for procedure at 1245. Original Note: Report to the Outpatient Waiting Room, entrance under the green pavilion located off [address], at time __ on date __. Planned Procedure Time: __.? Time changes happen often and if your time is changed the preop area will call you the afternoon before. - You and your visitor will be asked to self-screen and do not enter if you have any COVID symptoms. Please call surgeon if you need to reschedule. - A mask is optional within the hospital at this time. OK for breakfast and to take morning medications. Nothing to eat or drink for 2 hours prior to surgery which would be 1045am No smoking, or chewing tobacco (or any form of nicotine). No chewing gum, candy or mints. DO NOT STOP ANY OF YOUR OTHER PRESCRIPTION MEDICATIONS PRIOR TO SURGERY EXCEPT THE FOLLOWING Please no make-up, nail citizen of the [place], hairspray, perfume, deodorant, or body powder the day of surgery.? No jewelry (including any body piercings) or valuables the day of surgery, leave them at home.? Please take a shower or bath the night before, or the morning of, surgery with an antibacterial soap.? Wear comfortable, loose fitting clothing.? - Jewelry must be removed prior to entering the operating room.? Rings and piercings that are not removed may be cut off. - The hospital will not accept responsibility for valuables.? - Please leave all valuables, including medications, at home the day of surgery. If you are going home after surgery, a licensed student truck driver must drive you home.? - NO public transportation without another adult if you receive anesthesia. - We recommend that an adult stay with you for 24 hours following discharge. - We also recommend that you do not drive, make important decision, drink alcoholic beverages, or take any drugs that were not prescribed by your health care provider for at least 24 hours after your discharge time. Follow any additional instructions given to you from your surgeon. Telephone instructions given to __JSason__and asked if any additional questions and then verbalized understanding. Patient advised to call surgeon office or pre surgery nurse liaison [phone] if any additional questions.
[2024-05-23 10:04] VITALS: BMI 31.9
--- NOTE | ~2024-06-02 | XR_ITS ---
EXAMINATION: XR fluoroscopy no charge DATE: 06/02/2024 13:08 INDICATION: Lumbar nerve block TECHNIQUE: 11 fluoroscopic images of the lumbar spine were obtained during procedure performed by Dr. Muro. Radiologist was not present for the imaging or procedure. The amount of fluoroscopy time used during this procedure was 0.6 minutes. Total DAP was 1.96 Gycm^2 COMPARISON: 11/20/2022 FINDINGS: Images demonstrate needles advanced to the superolateral margin of the junction of the superior artic ular process and pedicle at both left and right at L4, L5 and S1. Injected contrast extends periphera lly from needle tips without evident intravascular or intrathecal extension. IMPRESSION: 1. Fluoroscopy utilized during bilateral L3-L5 dorsal ramus medial branch blocks. See procedure note for further detail. Reviewed, dictated and finalized at location B. FIC OBSERVER IMPRESSION: 1. Fluoroscopy utilized during bilateral L3-L5 dorsal ramus medial branch block s. See procedure note for further detail.
--- OUTSIDE RECORDS SUMMARY | 2024-06-02 00:08 | XMS_ITS | Encounter Summary ---
Author Organization [facility] Healthcare Address [facility] [place] [address] Care Team Providers Care Airplane Pilot Photogrammetry Name Role Phone Patricia Lopez MD Primary Care Provider Miscellaneous, Not In File Primary Care Provider Unavailable Patricia Lopez MD Primary Care Provider Encounter Details Date Type Department Care Team (Late st Contact Info) Description 11/03/2019 Telephone [facility] [address] [place] [address] Anahi Bonilla, RT Social History Tobacco Use Types Packs/Day Years Used Date Smoking Tobacco: Never Smokeless Tobacco: Never Alcohol Use Standard Drinks/Week Comments Yes 0 (1 standard drink = 0.6 oz pur e alcohol) social Sex and Gender Information Value Date Recorded Sex Assigned at Not on file 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
--- OUTSIDE RECORDS SUMMARY | 2024-06-02 00:08 | XMS_ITS | Clinical Summary ---
Author Organization [facility] Address [address] [place] [address] Phone Care Team Providers Care Threader Name Role Phone Unavailable Primary Care Provider Unavailabl e Allergies No known active allergies Medications lisdexamfetamine (VYVANSE) 70 mg capsule Take 70 mg by mouth daily in the morning. Active FLUoxetine (PROzac) 20 mg tablet Take 20 mg by mouth daily. Active atorvastatin (LIPITOR) 40 mg tablet Take 40 mg by mouth daily with supper. 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 Gender Identity Not on file Sexual Orientation Not on file Last Filed Vital Signs Vital Sign Reading Time Taken Comments Blood Pressure 126/85 03/21/2023 11:45 AM FILM AND VIDEO GRAPHICS DESIGNER Pulse 65 03/21/2023 12:00 PM FILM AND VIDEO GRAPHICS DESIGNER Temperature - - Respiratory Rate 20 03/21/2023 10:01 AM FILM AND VIDEO GRAPHICS DESIGNER Oxygen Saturation 97% 03/21/2023 12:00 PM FILM AND VIDEO GRAPHICS DESIGNER Inhaled Oxygen Concentration - - Weight 103.4 kg (228 lb) 03/21/2023 10:01 AM FILM AND VIDEO GRAPHICS DESIGNER Height - - Body Mass Index - - Plan of Treatment Health Maintenance Due Date Last Done Comments DTAP/TDAP/TD VACCINES (1 - Tdap) 06/21/1999 HEPATITIS B VACCINES (1 of 3 - 19+ 3-dose series) 06/21/1999 INFLUENZA VACCINE (#1) 2023 HPV VACCINES Aged Out No longer eligi ble based on patient's age to complete this topic PNEUMOCOCCAL VACCINE 0-49 YEARS Aged Out No longer eligible based on patient's age to complete this topic
--- OUTSIDE RECORDS SUMMARY | 2024-06-02 00:08 | XMS_ITS | Clinical Summary ---
Author Organization [facility] Address [address] [place] [address] Phone Care Team Providers Care Car Storer Name Role Phone Yoni Irizarry MD Primary Care Provider + Allergies No known active allergies Medications Vyvanse 70 MG Capsule TK 1 C PO D 02/09/2020 Active Depo-Testosteron e 200 MG/ML Solution 0 01/16/2020 Active Active Problems No known active problems Family History Medical History Relation Name Comments Heart Attack Maternal Grandfather Relation Name Status Comments Maternal Grandfather Social History Tobacco Use Types Packs/Day Years Used Date Smoking Tobacco: Never Smokeless Tobacco: Never Alcohol Use Standard Drinks/Week Comments Yes 0 (1 standard drink = 0.6 oz pur e alcohol) Sexually Active Control Partners Comments Yes Female Sex and Gender Information Value Date Recorded Sex Assigned at Not on file Legal Sex Male 6:56 PM CDT Gender Identity Not on file Sexual Orientation Not on file Last Filed Vital Signs Vital Sign Reading Time Taken Comments Blood Pressure 110/62 06/07/2020 1:37 PM FUR SCRAPER Pulse 108 06/07/2020 1:37 PM FUR SCRAPER Temperature 37.5 C (99.5 F) 06/07/2020 1:37 PM FUR SCRAPER Respiratory Rate 16 06/07/2020 1:37 PM FUR SCRAPER Oxygen Saturation 97% 06/07/2020 1:37 PM FUR SCRAPER Inhaled Oxygen Concentration - - Weight 95.3 kg (210 lb) 06/07/2020 1:37 PM FUR SCRAPER Height 182.9 cm (6') 02/11/2020 2:27 PM FUR SCRAPER Body Mass Index 28.48 02/11/2020 2:27 PM FUR SCRAPER Plan of Treatment Health Maintenance Due Date Last Done Comments Hepatitis C Virus (HCV) Screening 1980 TdaP Immunization 1980 Hepatitis B Immunization (1 of 3 - 19+ 3-dose series) 06/21/1999 Influenza Immunization (#1) 2023 SARS-COV-2 Immunization (2023- season) 2023 02/18/2021, 01/24/2021 Respiratory Syncytial Virus (RSV) Immunization (Adult) (1 - 1-dose 75+ series) 06/21/2055 Meningococcal Immunization (ACWY) Aged Out No longer eligible b ased on patient's age to complete this topic Pneumococcal Immunization Combined Aged Out No longer eligible b ased on patient's age to complete this topic Rotavirus Immunization Aged Out No lo nger eligible based on patient's age to complete this topic Insurance Care Teams Car Storer Relationship Specialty Start Date End Date Yoni Irizarry MD PCP - General Adult Medicine 11/08/16
--- OUTSIDE RECORDS SUMMARY | 2024-06-02 00:08 | XMS_ITS | Continuity of Care Document ---
Author Organization [facility] Address [address] [place] [address] Phone Care Team Providers Care Criminal Justice Teacher Name Role Phone Bonnie Buenrostro PT Unavailable Unavailable Procedures Procedure Date Therapeutic Activities Therapeutic Exercise Neuromuscular Re-Ed Therapeutic Activities Neuromuscular Re-Ed Therapeutic Exercise Therapeutic Activities Neuromuscular Re-Ed Manual Therapy Therapeutic Activities Neuromuscular Re-Ed Therapeutic Exercise Manual Therapy Therapeutic Activities Therapeutic Exercise Neuromuscular Re-Ed Manual Therapy PT Evaluation Moderate Complexity Therapeutic Activities Neuromuscular Re-Ed Therapeutic Exercise Manual Therapy Advance Directives Directive Yes / No Effective Date File Name No Information Encounters Encounter Description Practice Location Reason(s) For Visit Diagnoses Date Provider Providers Copied on Encounter [facility] [address], [place], [place], [id number], tel:[phone] Jovanny No Information Dec- Chitra Nicole. . Referring Provider: Lakshmi Smiley, [address] , [place], [address]. tel:[phone] [address] [place] [address], [address], [id number], tel:[phone] Oakley No Information Sep- 4 Garrels Bonnie. . Referring Provider: [address], [place], [address]. tel:[phone] [address] [place], [place] [id number] [address], [id number], tel:[phone] Jovanny No Information Dec- 4 Garrels Bonnie. . Referring Provider: Jank[address], [place], [address]. tel:[phone] [address] [place], [place] [id number] [address], [id number], tel:[phone] Jovanny No Information Dec-0 4 Gi Gutiérrez. [address] [place] [address], [address], [facility], . tel: [phone] Referring Provider: [address], [place], [address]. tel:[phone] [address] [place], [place] [id number] [address], [id number], tel:[phone] Jovanny No Information Oct-2 0 4 Gi Gutiérrez. [address] [place] [address], [facility] [address], [place], [facility], . tel: [phone] Referring Provider: Jank[address], [place], [address]. tel:[phone] [address] [place], [place] [id number] [address], [id number], tel:[phone] Oakley No Information 2- 4 Yogi Madden. . Referring Provider: [address], [place], [address]. tel:[phone] Family History Family Member Type Diagnosis Age At Onset No Information Payers Payer name Insurance type Covered democrat ID Authorjennifera alicia(s) [facility] [id number] Social History Type Description Quantity Date Captured Comments Sex Male Smoking Status No Information Chief Complaint And Reason For Visit No Information Reason For Referral Reason For Referral No Information History Of Present Illness Encounter Date Complaint History Of Prese nt Illness No Information Functional Status Date Functional Assessmen t No Information Instructions Date Instruction Additional Infor mation No Information Assessments Type Assessment Date No Information Patient Care Teams Name Effective Dates (start - stop) Status Members No Information
--- OUTSIDE RECORDS SUMMARY | 2024-06-02 00:08 | XMS_ITS | Referral Summary ---
Author Organization [facility] Healthcare Address [address] [place] [address] Care Team Providers Care Sock Knitter Name Role Phone Patricia Lopez MD Primary Care Provider Allergies No known active allergies Medications FLUoxetine (PROzac) 20 mg capsule Take 20 mg by mouth daily 0 Active lisdexamfetamin e (VYVANSE) 70 mg capsule Take 70 mg by mouth every morning Active testosterone cypionate (DEPO-TESTOTERO NE) 200 mg/mL injection Inject 100 mg into the muscle as instructed once a week Active HYDROcodone-marisa taminophen (NORCO) 5-325 mg per tabletIndicatio ns:Pain Take 1 tablet by mouth every 6 (six) hours as needed for pain 12 tablet 0 Active Active Problems Problem Noted Date Diagnosed Date Renal stone 02/20/2020 Overview (02/20/2020): Added automatically from request for surgery [id number] Kidney stone 02/18/2020 Acute upper respiratory infection 10/07/2015 Overview (07/08/2016): URI, acute Social History Tobacco Use Types Packs/Day Years Used Date Smoking Tobacco: Never Smokeless Tobacco: Never Alcohol Use Standard Drinks/Week Comments Yes 0 (1 standard drink = 0.6 oz pur e alcohol) social Sex and Gender Information Value Date Recorded Sex Assigned at Not on file Legal Sex Male 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 Gender Identity Not on file Sexual Orientation Not on file 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 Not on file Not on file Last Filed Vital Signs Vital Sign Reading Time Taken Comments Blood Pressure 142/86 02/27/2020 4:30 AM E COMMERCE MARKETING MANAGER Pulse 74 02/27/2020 4:30 AM E COMMERCE MARKETING MANAGER Temperature 36.5 C (97.7 F) 02/27/2020 2:19 AM E COMMERCE MARKETING MANAGER Respiratory Rate 16 02/27/2020 2:19 AM E COMMERCE MARKETING MANAGER Oxygen Saturation 96% 02/27/2020 4:30 AM E COMMERCE MARKETING MANAGER Inhaled Oxygen Concentration - - Weight 97.5 kg (215 lb) 02/27/2020 2:19 AM E COMMERCE MARKETING MANAGER Height 182.9 cm (6') 02/27/2020 2:19 AM E COMMERCE MARKETING MANAGER Body Mass Index 29.16 02/27/2020 2:19 AM E COMMERCE MARKETING MANAGER Plan of Treatment Not on file Medical Devices Explanted Type Area Spanish Literature Professor Device Identifier Shelf Expiration Date Model / Serial / Lot [employer] 180-223 Contour 6fr 26cm Large Inner Lumen Low Profile Bladder Ced Taper Latex Free - [id number] Implanted:Qty: 1 on 02/24/2020 by Oc Uribe MD at [facility] Explanted:Qty: 1 on 02/26/2020 Stent Right: Ureter [employer] MD Revolution 11/02/2022 180-223 / / [id number] Insurance [facility] HMO/PPO Address: [facility] [address] [place] [address] [facility] [employer] Address: [address] [place] [address] [employer] Address: [address] [place] [address] [facility] Care Teams Sock Knitter Relationship Specialty Start Date End Date Patricia Lopez MD PCP - General 02/24/20
--- OUTSIDE RECORDS SUMMARY | 2024-06-02 00:08 | XMS_ITS | Clinical Summary ---
Author Organization [facility] Healthcare Address [address] [place] [address] Care Team Providers Care Senior Policy Analyst Name Role Phone Patricia Lopez MD Primary [...] (02/20/2020): Added automatically from request for surgery [id number] Kidney stone 02/18/2020 Acute upper respiratory infection 10/07/2015 Overview (07/08/2016): URI, acute Medical History Medical History Date Comments Hx Other Medical ADHD; Comments: TABITHA 10/07/2015 - ADHD (attention deficit hyperactivity disorder) Kidney stone Depression Motion sickness Family History Medical History Relation Name Comments Gout Father Gout; Heart failure Father Congestive hea rt failure; Pancreatic cancer Mother Cancer, pa ncreas; Cause of : Cancer, pancreas Cancer Neg Hx Heart disease Neg Hx Relation Name Status Comments Father Mother Social History Tobacco Use Types Packs/Day Years Used Date Smoking Tobacco: Never Smokeless Tobacco: Never Alcohol Use Standard Drinks/Week Comments Yes 0 (1 standard drink = 0.6 oz pur e alcohol) social Sex and Gender Information Value Date Recorded Sex Assigned at Not on file Legal Sex Male 10:44 AM DATA ENTRY Gender Identity Not on file Sexual Orientation Not on file 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 Not on file Not on file Not on file Obstetrics History Last Filed Vital Signs Vital Sign Reading Time Taken Comments Blood Pressure 142/86 02/27/2020 4:30 AM DATA ENTRY Pulse 74 02/27/2020 4:30 AM DATA ENTRY Temperature 36.5 C (97.7 F) 02/27/2020 2:19 AM DATA ENTRY Respiratory Rate 16 02/27/2020 2:19 AM DATA ENTRY Oxygen Saturation 96% 02/27/2020 4:30 AM DATA ENTRY Inhaled Oxygen Concentration - - Weight 97.5 kg (215 lb) 02/27/2020 2:19 AM DATA ENTRY Height 182.9 cm (6') 02/27/2020 2:19 AM DATA ENTRY Body Mass Index 29.16 02/27/2020 2:19 AM DATA ENTRY Plan of Treatment Health Maintenance Due Date Last Done Comments Hepatitis C Screening 1980 Varicella Vaccines (1 of 2 - 13+ 2-dose series) 1993 Hepatitis B Screening 1998 Depression Screening 06/26/2018 06/26/2017 Regular Well Visit/Exam 18-64 06/26/2018 06/26/2017 Covid-19 Vaccine ( - season) 2023 02/18/2021, 01/24/2021 DTaP/Tdap/Td Vaccine (2 - Td or Tdap) 06/29/2031 06/28/2021 HPV Vaccines Aged Out No longer eligi ble based on patient's age to complete this topic Influenza Vaccine Discontinued Pneumococcal vaccine <65 Aged Out No longer eligible based on patient's age to complete this topic Medical Devices Explanted Type Area Multicut Line Operator Device Identifier Shelf Expiration Date Model / Serial / Lot [employer] Cheko 180-223 Contour 6fr 26cm Large Inner Lumen Low Profile Bladder Ced Taper Latex Free - [id number] Implanted:Qty: 1 on 02/24/2020 by Oc Uribe MD at [facility] Explanted:Qty: 1 on 02/26/2020 Stent Right: Ureter [employer] Cheko 11/02/2022 180-223 / / [id number] Insurance [facility] HMO/PPO Address: [address] [address] [place] [address] [facility] [employer] Address: [address] [place] [address] [facility] ACCESS CHOICE [employer] Address: [address] [place] [address] [facility] Care Teams Senior Policy Analyst Relationship Specialty Start Date End Date Patricia Lopez MD PCP - General 02/24/20
--- NOTE | 2024-06-02 08:31 | P.HP_ITS ---
History of Present Illness History of Present Illness Consent: Risks, benefits, and alternatives have been discussed and questions answered. Patient agrees to proceed with procedure. Chief complaint: spondylosis lumbosacral region, chronic low back p Narrative: Dilshad Kamara is a 43 year old male with chronic, recalcitrant and disabling bilateral lumbosacral back pain secondary to degenerative spondylosis with failure to respond to aggressive conservative measures including PT, oral and topical analgesics, opioid and nonopioid analgesics, rest, time and activity/behavioral modification over the past 1-2 years who presents for diagnostic/prognostic medial branch blocks of the bilateral L3, L4, L5 medial branches/dorsal ramus(#1) addressing the ipsilateral L4-5, L5-S1 facet joints under fluoroscopic guidance and with contrast control. Review of Systems Review of Systems: Patient denies any new infectious, allergic, cardiopulmonary, neurologic or constitutional symptoms or changes in activity tolerance or exercise capacity including new or progressive SOB/RYAN, peripheral edema, productive cough, dysuria, nausea/vomiting, diarrhea, weight change, fevers/chills/night sweats, new or progressive neurologic deficit, cognitive or mood changes since last seen, except as documented in the HPI. All systems reviewed & are unremarkable except as noted in HPI and below PMFSH Past Medical History Medical History Anxiety Attention Deficit Hyperactivity Disorder (ADHD) Dyslipidemia GERD (gastroesophageal reflux disease) History of kidney stones Low back pain Low testosterone in male Mixed hyperlipidemia Prediabetes Surgical History Surgical History History of ureteroscopy (~02/2020) with right stent placement Family History Family History Grandparent Family history of anemia, Onset Age: 75 Acute myocardial infarction, Onset Age: 70 Family history of congestive heart failure, Onset Age: 75 Heart disease Mother Family history of pancreatic cancer, Onset Age: 56 Father Family history of coronary artery disease, Onset Age: 58 Family history of congestive heart failure, Onset Age: 58 Heart disease Social History Social History Social History: Caffeine- daily Smoking status: Never smoker Second hand tobacco smoke exposure: No Alcohol intake: current Drinks per week: 7 Substance use: never Substance use type: does not use Lack of Transportation: No Current Housing: I Have Housing Concerned About Future Housing: No Difficulty Paying Gas/Electric Bills: No Difficulty Paying for Meds: No Currently Unemployed: No Education: Trade/Vocational Certificate Difficulty w/ Childcare or Family Care: No Living arrangements: with family Occupation/Education: occupation 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 Gender identity (if verbalized by the patient): Male Spiritual care concerns: No Agree to blood products: Yes Meds Home Medications and Allergies Home Medications ?Medication ?Instructions ?Recorded ?Confirmed ?Type omeprazole magnesium 20 mg 20 mg PO DAILY PRN acid reflux 11/06/23 05/23/24 History tablet,delayed release (Prilosec OTC) testosterone cypionate 100 mg/mL 100 mg IM WEEKLY 11/06/23 05/23/24 History intramuscular oil (Depo-Testosterone) methocarbamol 500 mg tablet 500 mg PO TID PRN muscle pain #90 12/17/23 05/23/24 Rx tabs bupropion HCl 150 mg tablet,12 hr 150 mg PO BID #180 tabs 04/14/24 05/23/24 Rx sustained-release cholecalciferol (vitamin D3) 50 50 mcg PO DAILY #90 caps 04/21/24 05/23/24 Rx mcg (2,000 unit) capsule tadalafil 10 mg tablet (Cialis) 10 mg PO DAILY PRN sexual activity 04/21/24 05/23/24 Rx #30 tabs atorvastatin 10 mg tablet (Lipitor) 10 mg PO QHS #90 tabs 05/08/24 05/23/24 Rx lisdexamfetamine 70 mg capsule 70 mg PO QAM #30 caps 05/09/24 05/23/24 Rx (Vyvanse) Allergies Allergy/AdvReac Type Severity Reaction Status Date / Time No Known Allergies Allergy Verified 05/23/24 10:02 Exam Narrative: The patient's physical exam is essentially unchanged from prior examination on 03/03/2024. Specifically, patient demonstrates normal lung capacity, tidal volume and respiratory rate without wheezes, crackles, rales or rubs. Heart rate and rhythm are regular without murmurs, gallops or rubs. No JVD. Pulses 2+ globally without increasing peripheral edema. AAOx3 with no evidence of confusion, intoxication or altered mental state, NC/AT without acute distress or altered consciousness. Speech, cognition, mood, insight and judgment at baseline and within normal limits. Assessment and Plan Assessment and plan (1) Lumbosacral spondylosis: Qualifiers: Spinal osteoarthritis complication: without myelopathy or radiculopathy Qualified Code(s): M47.817 - Spondylosis without myelopathy or radiculopathy, lumbosacral region Code(s): M47.817 - Spondylosis without myelopathy or radiculopathy, lumbosacral region Status: Acute Assessment and Plan: proceed as planned with diagnostic/prognostic medial branch blocks of the bilateral L3, L4, L5 medial branches/dorsal ramus(#1) addressing the ips ilateral L4-5, L5-S1 facet joints under fluoroscopic guidance and with contrast control. (2) Low back pain: Qualifiers: Chronicity: acute Back pain laterality: left Sciatica presence: with sciatica Sciatica laterality: sciatica of left side Qualified Code(s): M54.42 - Lumbago with sciatica, left side Code(s): M54.50 - Low back pain, unspecified Status: Acute (3) Chronic pain: Code(s): G89.29 - Other chronic pain Status: Acute
--- NOTE | 2024-06-02 08:33 | P.OP_ITS ---
Procedure Note - Detailed Date of Procedure 06/02/24 Pre-op Diagnosis spondylosis lumbosacral region, chronic low back pain Post-op Diagnosis Same Procedure Performed Diagnostic bilateral Lumbar Medial Branch/Dorsal Ramus Blocks at L3, L4, L5 Treating the bilateral L4-5, L5-S1 Facet Joints Under Fluoroscopic Guidance and with Contrast Control. ( 4 levels blocked). Surgeon Rg Muro MD Clinical Rehabilitation Coordinator None. Anesthesia Local Description of Procedure INFORMED CONSENT: Risks, benefits and alternatives to the procedure were discussed in detail with the patient who expressed explicit understanding and consent to proceed. Patient was informed verbally and in written form regarding the risks associated with the procedure including the low risk of serious infection, bleeding/bruising, allergic reaction, nerve or organ injury, paralysis, procedural site pain or discomfort, worsening pain and/or mobility, failure to treat and/or disfigurement. The patient expressed explicit understanding and consent to proceed. All materials required for the procedure were available prior to procedure start. Site and side were marked prior to procedure and confirmed in the presence of the patient. PROCEDURE IN DETAIL: The patient was brought to the procedural suite and placed in the prone position. Patient was made comfortable with use of pillows under the head/chest, hips and ankles. Skin overlying the injection site on the affected side(s) was prepared broadly with ChloraPrep applicator and draped in a sterile manner. Aseptic technique was used throughout. The endplates of the vertebral bodies at the site(s) of interest were aligned in the AP view. Ipsilateral oblique angulation was utilized to optimize visualization of the intersection between the superior articulating process and transverse process at each target site. Local anesthesia was established by infiltration with approximately 5 mL of 1% lidocaine via a 1-1/2 inch 27-gauge needle. A 25-gauge 3.5 inch Quincke spinal needle was advanced until the needle tip contacted periosteum at the target site, right L3. Lateral view was utilized to confirm the appropriate placement of the needle tip just anterior to the facet line and superior to the pedicle. In the Lateral view, 0.25 mL of Omnipaque 300 contrast medium was injected after negative aspiration for CSF, blood or other bodily fluid, showing appropriate extra-articular spread of contrast without evidence of intravascular, foraminal or intrathecal placement. A 0.5 mL solution of 0.5% PF bupivacaine was injected after negative repeat aspiration. Appropriate spread of the injectate was confirmed with washout of previously injected contrast. No parasthesias were elicited. Needle was removed completely intact without difficulty. The same exact procedure was repeated for all remaining levels on the ipsilateral side, right L4, L5 medial branches/dorsal ramus, modified as necessary to accommodate for the new target location with identical findings and results and no evidence of complication. The same exact procedure was repeated for all remaining levels on the contralateral side, left L3, L4, L5 medial branches/dorsal ramus, modified as necessary to accommodate for the new target location with identical findings and results and no evidence of complication. Images were saved and documented in the patient chart. Patient's skin was cleaned and sterile bandage applied. The patient tolerated the procedure well. The patient was transported to the recovery area in stable condition where they were observed for an appropriate amount of time prior to discharge, without evidence of complication. Patient was instructed on the appropriate completion of a pain diary over the next 12-24 hours. The patient was instructed to avoid excessive activity for the next 48 hours, including climbing and frequent use of stairs. Showers only for 48 hours. They were instructed not to drive or operate heavy machinery for 24 hours. They are to monitor for severe headaches, fevers, chills, night sweats, erythema/swelling at the site or any other signs of infection, bleeding/bruising, bowel or bladder changes as well as new pain, weakness or numbness in the upper or lower extremity. Should they notice these changes, they are instructed to call our office immediately or report directly to the nearest Emergency Department if no answer or if after posted office hours. COMPLICATIONS: None COMMENTS: None CONTRAST WASTED: 28.5mL Omnipaque 300. Complications No immediate complications Condition Stable Disposition Same day [facility] Billing Surgery - Charge Forward: Surgery Billing
--- NOTE | 2024-06-02 08:33 | WPDHPUPDATE1 ---
History and Physical Update Update Date/Time: 06/02/24 08:33 History and Physical has been reviewed, including an updated exam of the patient. There are NO changes in the patient's condition. Risks, benefits, and alternatives have been discussed and questions answered. Patient agrees to proceed with procedure.
[2024-06-02 12:00] VITALS: BP 181/101; PULSE 97; RESP 16; TEMP 36.2; O2SAT 97
[2024-06-02 12:50] VITALS: BP 148/93; PULSE 87; RESP 16; O2SAT 95
[2024-06-02] MEDS: LIDOCAINE 2% LOCAL INJ 20 ML VIAL INFILTRATE (12:50)
[2024-06-02 12:55] VITALS: BP 91/53; PULSE 75; RESP 16; O2SAT 98
[2024-06-02 13:00] VITALS: BP 109/56; PULSE 74; RESP 14; O2SAT 97
[2024-06-02 13:05] VITALS: BP 131/83; PULSE 79; RESP 16; O2SAT 96
== END 2024-06-02 13:40 | disposition home or self-care (01) ==
PROVIDERS: PCP Family Medicine; Visit Provider Anesthesiology Pain Medicine
PROC: (CPT 64493; principal; 2024-06-02 12:45)
DX: M47.817 Spondylosis without myelopathy or radiculopathy, lumbosacral region (principal); G89.29 Other chronic pain
CPT/HCPCS: 64493; 64494 ×2; 64495 ×2; 99199; J2003; Q9965

== ENCOUNTER 2024-07-07 00:06 | Day surgery (SDC) | payer BC, SELFPAY ==
[2024-06-24 10:43] VITALS: BMI 31.2
--- NOTE | 2024-06-24 10:47 | PC.NURSE ---
Report to the Outpatient Waiting Room, entrance under the green pavilion located off [facility], at time _245pm_ on date _[id number]_. Planned Procedure Time: _345pm_.? Time changes happen often and if your time is changed the preop area will call you the afternoon before. - You and your visitor will be asked to self-screen and do not enter if you have any COVID symptoms. Please call surgeon if you need to reschedule. - A mask is optional within the hospital at this time. - No smoking, or chewing tobacco (or any form of nicotine). OK for breakfast and light lunch. Nothing to eat or drink after 145pm. No chewing gum, candy or mints. Take only the following medications with a SIP of water on the morning of surgery: ____All medications OK as told by office.___ DO NOT STOP ANY OF YOUR OTHER PRESCRIPTION MEDICATIONS PRIOR TO SURGERY EXCEPT THE FOLLOWING Hold all vitamins and supplements for 3 days per anesthesiologist. Medications to discontinue per physician Date to take last dose Please no make-up, nail colombian, hairspray, perfume, deodorant, or body powder the day of surgery.? No jewelry (including any body piercings) or valuables the day of surgery, leave them at home.? Please take a shower or bath the night before, or the morning of, surgery with an antibacterial soap.? Wear comfortable, loose fitting clothing.? - Jewelry must be removed prior to entering the operating room.? Rings and piercings that are not removed may be cut off. - The hospital will not accept responsibility for valuables.? - Please leave all valuables, including medications, at home the day of surgery. If you are going home after surgery, a licensed marine engine driver must drive you home.? - NO public transportation without another adult if you receive anesthesia. - We recommend that an adult stay with you for 24 hours following discharge. - We also recommend that you do not drive, make important decision, drink alcoholic beverages, or take any drugs that were not prescribed by your health care provider for at least 24 hours after your discharge time. Follow any additional instructions given to you from your surgeon. Telephone instructions given to __Dilshad__and asked if any additional questions and then verbalized understanding. Patient advised to call surgeon office or pre surgery nurse liaison [phone] if any additional questions.
--- NOTE | ~2024-07-07 | XR_ITS ---
INTRAOPERATIVE FLUOROSCOPY: CLINICAL HISTORY: 44 years old Male; BILATERAL SACROILIAC JOINT STEROID INJECTION PROCEDURE COMMENTS: Limited intraoperative fluoroscopy of the pelvis was performed. CUMULATIVE DOSE: 45 mGy FLUOROSCOPY TIME: 60 seconds FINDINGS/IMPRESSION: Please refer to operative note for further details. Reviewed, dictated and finalized at location A.
--- OUTSIDE RECORDS SUMMARY | 2024-07-07 00:10 | XMS_ITS | Encounter Summary ---
Author Organization [facility] Healthcare Address [facility] [place] [address] Care Team Providers Care Pharmaceutical Salesperson Name Role Phone Patricia Lopez MD Primary Care Provider Miscellaneous, Not In File Primary Care Provider Unavailable Patricia Lopez MD Primary Care Provider Encounter Details Date Type Department Care Team (Late st Contact Info) Description 11/03/2019 Telephone [facility] [address] [place] [id number] Anahi Bonilla, RT Social History Tobacco Use Types Packs/Day Years Used Date Smoking Tobacco: Never Smokeless Tobacco: Never Alcohol Use Standard Drinks/Week Comments Yes 0 (1 standard drink = 0.6 oz pur e alcohol) social Sex and Gender Information Value Date Recorded Sex Assigned at Not on file 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
--- OUTSIDE RECORDS SUMMARY | 2024-07-07 00:10 | XMS_ITS | Continuity of Care Document ---
Author Organization [facility] Address [address] [place] [address] Phone Care Team Providers Care Chalk Cutter Name Role Phone Bonnie Buenrostro PT Unavailable Unavailable Procedures Procedure Date Therapeutic Activities Neuromuscular Re-Ed Therapeutic Exercise Therapeutic Activities Neuromuscular Re-Ed Therapeutic Exercise Therapeutic Activities Neuromuscular Re-Ed Manual Therapy Therapeutic Activities Therapeutic Exercise Neuromuscular Re-Ed Manual Therapy Therapeutic Activities Therapeutic Exercise Neuromuscular Re-Ed Manual Therapy PT Evaluation Moderate Complexity Therapeutic Activities Therapeutic Exercise Neuromuscular Re-Ed Manual Therapy Advance Directives Directive Yes / No Effective Date File Name No Information Encounters Encounter Description Practice Location Reason(s) For Visit Diagnoses Date Provider Providers Copied on Encounter [facility] [address], [place], [place], [id number], tel:[phone] [place] No Information Dec- Chitra Nicole. . Referring Provider: Lakshmi Smiley, [address] [facility] , [place], [address]. tel:[phone] [address] [place] [address], [address], [id number], tel:[phone] [place] No Information Sep- 4 Garrels Bonnie. . Referring Provider: [address], [place], [address]. tel:[phone] [address] [place], [place] [id number] [address], [id number], tel:[phone] [place] No Information Dec- 4 Garrels Bonnie. . Referring Provider: [address], [place], [address]. tel:[phone] [address] [place], [place] [id number] [address], [id number], tel:[phone] [place] No Information Dec-0 4 Gi Gutiérrez. [address] [place] [address], [address], [facility], . tel: [phone] Referring Provider: [address], [place], [address]. tel:[phone] [address] [place], [place] [id number] [address], [id number], tel:[phone] [place] No Information Oct-2 0 4 Gi Gutiérrez. [address] [place] [address], [facility] [address], [place], [facility], . tel: [phone] Referring Provider: [address], [place], [address]. tel:[phone] [address] [place], [place] [id number] [address], [id number], tel:[phone] [place] No Information 2- 4 Yogi Madden. . Referring Provider: [address], [place], [address]. tel:[phone] Family History Family Member Type Diagnosis Age At Onset No Information Payers Payer name Insurance type Covered constitution party ID Authorjennifera alicia(s) [facility] [id number] Social History Type Description Quantity Date Captured [...]
--- OUTSIDE RECORDS SUMMARY | 2024-07-07 00:10 | XMS_ITS | Clinical Summary ---
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
--- OUTSIDE RECORDS SUMMARY | 2024-07-07 00:10 | XMS_ITS | Clinical Summary ---
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 Not on file Not on file Obstetrics History Last Filed Vital Signs Vital Sign Reading Time Taken Comments Blood Pressure 142/86 02/27/2020 4:30 AM AIRCRAFT INSTRUMENT TESTER Pulse 74 02/27/2020 4:30 AM AIRCRAFT INSTRUMENT TESTER Temperature 36.5 C (97.7 F) 02/27/2020 2:19 AM AIRCRAFT INSTRUMENT TESTER Respiratory Rate 16 02/27/2020 2:19 AM AIRCRAFT INSTRUMENT TESTER Oxygen Saturation 96% 02/27/2020 4:30 AM AIRCRAFT INSTRUMENT TESTER Inhaled Oxygen Concentration - - Weight 97.5 kg (215 lb) 02/27/2020 2:19 AM AIRCRAFT INSTRUMENT TESTER Height 182.9 cm (6') 02/27/2020 2:19 AM AIRCRAFT INSTRUMENT TESTER Body Mass Index 29.16 02/27/2020 2:19 AM AIRCRAFT INSTRUMENT TESTER Plan of Treatment Health Maintenance Due Date [...] this topic Medical Devices Explanted Type Area Director Of Consumer Marketing Device Identifier Shelf Expiration Date Model / Serial / Lot [employer] 180-223 Contour 6fr 26cm Large Inner Lumen Low Profile Bladder Ced Taper Latex Free - [id number] Implanted:Qty: 1 on 02/24/2020 by Oc Uribe MD at [facility] Explanted:Qty: 1 on 02/26/2020 Stent Right: Ureter [employer] 11/02/2022 180-223 / / [id number] Insurance [facility] EM[employer] PLANS Address: [address] [place] [address] [facility] ACCESS CHOICE [employer] Address: [address] [place] [address] [facility] Care Teams Client Success Manager Relationship Specialty Start Date End Date Patricia Lopez MD PCP - General 02/24/20
--- OUTSIDE RECORDS SUMMARY | 2024-07-07 00:10 | XMS_ITS | Referral Summary ---
Author Organization [facility] Healthcare Address [address] [place] [id number] Care Team Providers Care Lamp Inspector Name Role Phone Patricia Lopez MD Primary [...] (02/20/2020): Added automatically from request for surgery [id number] Kidney stone 02/18/2020 Acute upper respiratory infection 10/07/2015 Overview (07/08/2016): URI, acute Social History Tobacco Use Types Packs/Day Years Used Date Smoking Tobacco: Never Smokeless Tobacco: Never Alcohol Use Standard Drinks/Week Comments Yes 0 (1 standard drink = 0.6 oz pur e alcohol) social Sex and Gender Information Value Date Recorded Sex Assigned at Not on file Legal Sex Male 10:44 AM SOUND EFFECTS SUPERVISOR Gender Identity Not on file Sexual Orientation Not on file 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 Not on file Not on file Not on file Last Filed Vital Signs Vital Sign Reading Time Taken Comments Blood Pressure 142/86 02/27/2020 4:30 AM SOUND EFFECTS SUPERVISOR Pulse 74 02/27/2020 4:30 AM SOUND EFFECTS SUPERVISOR Temperature 36.5 C (97.7 F) 02/27/2020 2:19 AM SOUND EFFECTS SUPERVISOR Respiratory Rate 16 02/27/2020 2:19 AM SOUND EFFECTS SUPERVISOR Oxygen Saturation 96% 02/27/2020 4:30 AM SOUND EFFECTS SUPERVISOR Inhaled Oxygen Concentration - - Weight 97.5 kg (215 lb) 02/27/2020 2:19 AM SOUND EFFECTS SUPERVISOR Height 182.9 cm (6') 02/27/2020 2:19 AM SOUND EFFECTS SUPERVISOR Body Mass Index 29.16 02/27/2020 2:19 AM SOUND EFFECTS SUPERVISOR Plan of Treatment Not on file Medical Devices Explanted Type Area Cement Finisher Helper Device Identifier Shelf Expiration Date Model / Serial / Lot [employer] Cheko 180-223 Contour 6fr 26cm Large Inner Lumen Low Profile Bladder Ced Taper Latex Free - [id number] Implanted:Qty: 1 on 02/24/2020 by Oc Uribe MD at [facility] Explanted:Qty: 1 on 02/26/2020 Stent Right: Ureter [employer] [employer] 11/02/2022 180-223 / / [id number] Insurance [facility] H[facility]/PPO Address: [facility] [address] [place] [address] [facility] EMPL[employer]EE HEALTH PLANS Address: [address] [place] [address] [employer] ACCESS CHOICE [facility] [employer] Address: [address] [place] [address] [facility] Care Teams Lamp Inspector Relationship Specialty Start Date End Date Patricia Lopez MD PCP - General 02/24/20
--- OUTSIDE RECORDS SUMMARY | 2024-07-07 00:10 | XMS_ITS | Clinical Summary ---
Author Organization [facility] Address [address] [place] [address] Phone Care Team Providers Care Sanipractic Physician Name Role Phone Yoni Irizarry MD Primary [...] Comments Blood Pressure 110/62 06/07/2020 1:37 PM SALVAGE ENGINEER Pulse 108 06/07/2020 1:37 PM SALVAGE ENGINEER Temperature 37.5 C (99.5 F) 06/07/2020 1:37 PM SALVAGE ENGINEER Respiratory Rate 16 06/07/2020 1:37 PM SALVAGE ENGINEER Oxygen Saturation 97% 06/07/2020 1:37 PM SALVAGE ENGINEER Inhaled Oxygen Concentration - - Weight 95.3 kg (210 lb) 06/07/2020 1:37 PM SALVAGE ENGINEER Height 182.9 cm (6') 02/11/2020 2:27 PM SALVAGE ENGINEER Body Mass Index 28.48 02/11/2020 2:27 PM SALVAGE ENGINEER Plan of Treatment Health Maintenance Due Date [...] to complete this topic Insurance Care Teams Sanipractic Physician Relationship Specialty Start Date End Date Yoni Irizarry MD PCP - General Adult Medicine 11/08/16
[2024-07-07 13:58] VITALS: BP 145/90; PULSE 103; RESP 18; TEMP 36.6; O2SAT 95
--- NOTE | 2024-07-07 14:07 | WPDHPUPDATE1 ---
History and Physical Update Update Date/Time: 07/07/24 14:07 History and Physical has been reviewed, including an updated exam of the patient. There are NO changes in the patient's condition. Risks, benefits, and alternatives have been discussed and questions answered. Patient agrees to proceed with procedure.
--- NOTE | 2024-07-07 14:08 | W.PM.PROC2 ---
Procedure Note - Detailed Date of Procedure 07/07/24 Pre-op Diagnosis sacroiliitis. chronic low back pain Post-op Diagnosis Same Procedure Performed Bilateral Sacroiliac Joint Steroid Injection under Fluoroscopic Guidance and with Contrast Control. Surgeon Rg Muro MD Student Accounts Coordinator None Anesthesia Local Description of Procedure INFORMED CONSENT: Risks, benefits and alternatives to the procedure were discussed in detail with the patient who expressed explicit understanding and consent to proceed. Patient was informed verbally and in written form regarding the risks associated with the procedure including the low risk of serious infection, bleeding/bruising, allergic reaction, nerve or organ injury, paralysis, procedural site pain or discomfort, worsening pain and/or mobility, failure to treat and/or disfigurement. The patient expressed explicit understanding and consent to proceed. All materials required for the procedure were available prior to procedure start. Site and side were marked prior to procedure and confirmed in the presence of the patient. PROCEDURE IN DETAIL: The patient was brought to the procedural suite and placed in the prone position. Patient was made comfortable with use of pillows under the head/chest, hips and ankles. Skin overlying the injection site on the affected side(s) was prepared broadly with ChloraPrep applicator and draped in a sterile manner. Aseptic technique was used throughout. The right SI joint was identified in the AP view and contralateral oblique angulation with caudal tilt was utilized to optimize visualization of the inferior and medial joint line representing the posterior portion of the joint. Local anesthesia was established by infiltration with approximately 5 mL of 2% lidocaine via a 1-1/2 inch 27-gauge needle. A 22-gauge 3.5 inch Quincke spinal needle was advanced until the needle entered the inferior third of the joint space approximately 1cm cephalad from its most inferior point. In the AP view, 0.5 mL of Omnipaque 300 contrast medium was injected after negative aspiration for CSF, blood or other bodily fluid, showing appropriate intra-articular spread of contrast without evidence of intravascular, perineural or intrathecal placement. A 1.5 mL solution containing 3 mg of betamethasone in 0.5% PF bupivacaine was injected after repeat negative aspiration. Appropriate spread of the injectate was confirmed with washout of previous injected contrast. No parasthesias were elicited. Needle was removed completely intact without difficulty. The same exact procedure was repeated for all remaining levels on the contralateral side, left SI joint, modified as necessary to accommodate for the new target location with identical findings/results and no evidence of complication. Images were saved and documented in the patient chart. Patient's skin was cleansed and sterile bandage applied. The patient tolerated the procedure well. The patient was transported to the recovery area in stable condition where they were observed for an appropriate amount of time prior to discharge, without evidence of complication. The patient was instructed to avoid excessive activity for the next 48 hours, including climbing and frequent use of stairs. Showers only for 48 hours. They were instructed not to drive or operate heavy machinery for 24 hours. They are to monitor for severe headaches, fevers, chills, night sweats, erythema/swelling at the site or any other signs of infection, bleeding/bruising, bowel or bladder changes as well as new pain, weakness or numbness in the upper or lower extremity. Should they notice these changes, they are instructed to call our office immediately or report directly to the nearest Emergency Department if no answer or if after posted office hours. COMPLICATIONS: None COMMENTS: None CONTRAST WASTED: 29mL Omnipaque 300. Complications No immediate complications Condition Stable Disposition Same day [facility] Billing Surgery - Charge Forward: Surgery Billing
[2024-07-07 14:53] VITALS: BP 146/83; PULSE 89; RESP 16; O2SAT 95
[2024-07-07] MEDS: BUPivacaine HCL 0.5% PF 30 ML VIAL INFILTRATE (14:53)
[2024-07-07] MEDS: BETAMETHASONE SODIUM PHOSPHATE PF INJ 6 MG/ML VIAL INFILTRATE (14:53)
[2024-07-07 14:59] VITALS: BP 151/93; PULSE 84; RESP 16; O2SAT 96
[2024-07-07 15:04] VITALS: BP 149/80; PULSE 89; RESP 16; TEMP 36.4; O2SAT 96
== END 2024-07-07 15:25 | disposition home or self-care (01) ==
PROVIDERS: PCP Family Medicine; Visit Provider Anesthesiology Pain Medicine
PROC: (CPT 64451; principal; 2024-07-07 14:45)
DX: M47.27 Other spondylosis with radiculopathy, lumbosacral region (principal); G89.29 Other chronic pain; R73.03 Prediabetes; K21.9 Gastro-esophageal reflux disease without esophagitis; E29.1 Testicular hypofunction; F41.9 Anxiety disorder, unspecified; F90.9 Attention-deficit hyperactivity disorder, unspecified type; Z79.1 Long term (current) use of non-steroidal anti-inflammatories (NSAID); Z98.890 Other specified postprocedural states; Z96.0 Presence of urogenital implants; Z87.442 Personal history of urinary calculi; Z80.0 Family history of malignant neoplasm of digestive organs; Z82.49 Family history of ischemic heart disease and other diseases of the circulatory system
CPT/HCPCS: 64451; 99199; J1171; J2003; Q9965